=== PATIENT | male | born 1955 | race American Indian/Alaskan Native ===

== ENCOUNTER 2018-05-31 23:48 | Inpatient (IN) | payer MEDICAID ==
[2018-06-01] MEDS ORDERED: NACL 0.9% 1000 ML IV ONE (00:38)
[2018-06-01] MEDS ORDERED: TYLENOL PO ONE (00:39)
--- NOTE | 2018-06-01 01:00 | XRay Report ---
FINAL REPORT PROCEDURE: XR CHEST 1V AP TECHNIQUE: Chest radiograph anteroposterior view. CPT 01946 HISTORY: sob, fever COMPARISON: No prior studies are available for comparison. FINDINGS: Heart: Normal. Mediastinum/Vessels: Normal. Lungs/Pleural space: Normal. Bony thorax: No acute osseous abnormality. Life support devices: None. IMPRESSION: No acute cardiopulmonary abnormality.
[2018-06-01] MEDS ORDERED: PEPCID IV ONE (01:17)
[2018-06-01] MEDS ORDERED: ATROVENT IH ONE (01:17)
[2018-06-01] MEDS ORDERED: TESSALON PERLES PO ONE (01:17)
[2018-06-01] MEDS ORDERED: PROVENTIL IH ONE ×2 (01:17→03:43)
[2018-06-01] MEDS ORDERED: SOLU-Medrol IV ONE (01:17)
[2018-06-01] MEDS ORDERED: TORADOL IV ONE (01:17)
[2018-06-01] MEDS ORDERED: ZITHROMAX 500 MG in NACL 0.9% 250ML 250 ML IV ONE (01:37)
[2018-06-01] MEDS ORDERED: MAGNESIUM SULFATE 2GM/50ML 2 GM/50 ML BAG IV ONE (01:47)
[2018-06-01 01:51] LABS: Basophils % (Auto) 0.1 % (0.0-1.8); Eosinophils % (Auto) 0.4 % (0.0-4.3); Hematocrit 42.3 % (35.5-45.6); Hemoglobin 14.4 gm/dl (11.8-15.2); Lymphocytes # (Auto) 0.3 K/mm3 (1.2-5.4); Lymphocytes % (Auto) 4.9 % (13.4-35.0); Mean Corpuscular HGB Conc 34 % (32-34); Mean Corpuscular Volume 95 fl (84-94); Monocytes # (Auto) 0.5 K/mm3 (0.0-0.8); Monocytes % (Auto) 8.7 % (0.0-7.3); Platelet Count 178 K/mm3 (140-440); Red Blood Count 4.47 M/mm3 (3.65-5.03); Red Cell Distribution Width 13.7 % (13.2-15.2)
[2018-06-01] MEDS: ROCEPHIN/NS 1 GM/50 ML 1 GM/50 ML BAG IV ONE (02:00)
[2018-06-01 02:01] LABS: INR 0.94 (0.87-1.13)
[2018-06-01 02:03] LABS: Alanine Aminotransferase 16 units/L (7-56); Albumin 3.7 g/dL (3.9-5); BUN/Creatinine Ratio 14; Blood Urea Nitrogen 15 mg/dL (9-20); Calcium 8.4 mg/dL (8.4-10.2); Hemolysis Index 10
--- NOTE | 2018-06-01 04:13 | Emergency Department Report ---
ED Shortness of Breath HPI - General Chief Complaint: Dyspnea/Respdistress Stated Complaint: DIFFICULTY BREATHING Time Seen by Provider: 06/01/18 00:38 Source: patient Mode of arrival: Ambulatory Limitations: No Limitations - History of Present Illness Initial Comments: 62-year-old male with a past medical history of COPD (no home oxygen), CVA, HIV (CD4 186 1 month ago), and hypertension presents to the hospital with complaints of fever, cough, shortness of breath 1 day. Patient has been wheezing and frequent dry cough. Complains of subjective fevers and posttussive vomiting. No complaints of chest pain secondary to coughing that is mild to moderate in intensity. Patient did receive his flu and pneumonia shot. Patient using his inhaler without relief it does not have a nebulizer machine. His primary care doctors are affiliated with [facility] on [address] [place]. Patient is compliant with his antiretrovirals medications. - Related Data Allergies Allergy/AdvReac Type Severity Reaction Status Date / Time efavirenz [From Sustiva] Allergy Rash Verified 06/01/18 00:18 ED Review of Systems ROS: Stated complaint: DIFFICULTY BREATHING Other details as noted in HPI Comment: All other systems reviewed and negative ED Past Medical Hx - Past Medical History Previous Medical History?: Yes Hx Hypertension: Yes Hx CVA: Yes (1995) Hx COPD: Yes Hx HIV: Yes - Surgical History Past Surgical History?: No - Social History Smoking Status: Current Every Day Smoker Substance Use Type: None ED Physical Exam - General Limitations: No Limitations - Other Other exam information: General: No limitations, patient is alert in no acute distress Head exam: Atraumatic, normocephalic Eyes exam: Normal appearance, ENT: Moist mucous membrane Neck exam: Normal inspection, full range of motion, no meningismus nontender Respiratory exam: Bilateral wheezing without accessory muscle use. Frequent dry cough Cardiovascular: Normal rate and rhythm, normal heart sounds Abdomen: Soft, nondistended, and nontender, with normal bowel sounds, no rebound, or guarding Extremity: Full range of motion normal inspection no deformity Back: Normal Inspection, full range of motion, no tenderness Neurologic: Alert, oriented x3, cranial nerves intact, no motor or sensory deficit Psychiatric: normal affect, normal mood Skin: Warm, dry, intact ED Course Vital Signs 06/01/18 06/01/18 06/01/18 00:01 00:24 00:42 Temperature 100.6 F H 100.6 F H Pulse Rate 91 H Pulse Rate [ Anterior Bilateral Throughout] Respiratory 20 Rate Respiratory Rate [Anterior Bilateral Throughout] Blood Pressure 130/74 130/74 O2 Sat by Pulse 89 94 Oximetry 06/01/18 06/01/18 06/01/18 00:45 01:00 01:25 Temperature Pulse Rate 89 89 Pulse Rate [ 90 Anterior Bilateral Throughout] Respiratory 34 H 38 H Rate Respiratory 17 Rate [Anterior Bilateral Throughout] Blood Pressure 101/53 101/53 O2 Sat by Pulse 96 92 Oximetry 06/01/18 06/01/18 06/01/18 02:08 02:30 03:46 Temperature Pulse Rate 92 H Pulse Rate [ 87 87 Anterior Bilateral Throughout] Respiratory 31 H Rate Respiratory 18 24 Rate [Anterior Bilateral Throughout] Blood Pressure 108/66 O2 Sat by Pulse 94 Oximetry ED Medical Decision Making - Lab Data Result diagrams: 06/01/18 01:23 06/01/18 01:23 Lab Results 06/01/18 06/01/18 06/01/18 Range/Units 01:23 01:23 01:23 WBC 5.2 (4.5-11.0) K/mm3 RBC 4.47 (3.65-5.03) M/mm3 Hgb 14.4 (11.8-15.2) gm/dl Hct 42.3 (35.5-45.6) % MCV 95 H (84-94) fl MCH 32 (28-32) pg MCHC 34 (32-34) % RDW 13.7 (13.2-15.2) % Plt Count 178 (140-440) K/mm3 Lymph % (Auto) 4.9 L (13.4-35.0) % [place] % (Auto) 8.7 H (0.0-7.3) % Eos % (Auto) 0.4 (0.0-4.3) % Baso % (Auto) 0.1 (0.0-1.8) % Lymph # 0.3 L (1.2-5.4) K/mm3 [place]ie # 0.5 (0.0-0.8) K/mm3 Eos # 0.0 (0.0-0.4) K/mm3 Baso # 0.0 (0.0-0.1) K/mm3 Seg Neutrophils % 85.9 H (40.0-70.0) % Seg Neutrophils # 4.5 (1.8-7.7) K/mm3 PT (12.2-14.9) Sec. INR (0.87-1.13) VBG pH (7.320-7.420) Sodium 135 L (137-145) mmol/L Potassium 4.0 (3.6-5.0) mmol/L Chloride 100.5 (98-107) mmol/L Carbon Dioxide 24 (22-30) mmol/L Anion Gap 15 mmol/L BUN 15 (9-20) mg/dL Creatinine 1.1 (0.8-1.5) mg/dL Estimated GFR > 60 ml/min BUN/Creatinine Ratio 14 % Glucose 94 (75-100) mg/dL Lactic Acid 1.50 (0.7-2.0) mmol/L Calcium 8.4 (8.4-10.2) mg/dL Total Bilirubin 0.30 (0.1-1.2) mg/dL AST 27 (5-40) units/L ALT 16 (7-56) units/L Alkaline Phosphatase 118 (35-129) units/L Troponin T (0.00-0.029) ng/mL Total Protein 6.6 (6.3-8.2) g/dL Albumin 3.7 L (3.9-5) g/dL Albumin/Globulin Ratio 1.3 % Influenza A (Rapid) (Negative) Influenza B (Rapid) (Negative) 06/01/18 06/01/18 06/01/18 Range/Units 01:23 01:23 01:23 WBC (4.5-11.0) K/mm3 RBC (3.65-5.03) M/mm3 Hgb (11.8-15.2) gm/dl Hct (35.5-45.6) % MCV (84-94) fl MCH (28-32) pg MCHC (32-34) % RDW (13.2-15.2) % Plt Count (140-440) K/mm3 Lymph % (Auto) (13.4-35.0) % [place] % (Auto) (0.0-7.3) % Eos % (Auto) (0.0-4.3) % Baso % (Auto) (0.0-1.8) % Lymph # (1.2-5.4) K/mm3 [place] # (0.0-0.8) K/mm3 Eos # (0.0-0.4) K/mm3 Baso # (0.0-0.1) K/mm3 Seg Neutrophils % (40.0-70.0) % Seg Neutrophils # (1.8-7.7) K/mm3 PT 13.0 (12.2-14.9) Sec. INR 0.94 (0.87-1.13) VBG pH 7.334 (7.320-7.420) Sodium (137-145) mmol/L Potassium (3.6-5.0) mmol/L Chloride (98-107) mmol/L Carbon Dioxide (22-30) mmol/L Anion Gap mmol/L BUN (9-20) mg/dL Creatinine (0.8-1.5) mg/dL Estimated GFR ml/min BUN/Creatinine Ratio % Glucose (75-100) mg/dL Lactic Acid (0.7-2.0) mmol/L Calcium (8.4-10.2) mg/dL Total Bilirubin (0.1-1.2) mg/dL AST (5-40) units/L ALT (7-56) units/L Alkaline Phosphatase (35-129) units/L Troponin T < 0.010 (0.00-0.029) ng/mL Total Protein (6.3-8.2) g/dL Albumin (3.9-5) g/dL Albumin/Globulin Ratio % Influenza A (Rapid) (Negative) Influenza B (Rapid) (Negative) 06/01/18 Range/Units Unknown WBC (4.5-11.0) K/mm3 RBC (3.65-5.03) M/mm3 Hgb (11.8-15.2) gm/dl Hct (35.5-45.6) % MCV (84-94) fl MCH (28-32) pg MCHC (32-34) % RDW (13.2-15.2) % Plt Count (140-440) K/mm3 Lymph % (Auto) (13.4-35.0) % [place] % (Auto) (0.0-7.3) % Eos % (Auto) (0.0-4.3) % Baso % (Auto) (0.0-1.8) % Lymph # (1.2-5.4) K/mm3 [place]ie # (0.0-0.8) K/mm3 Eos # (0.0-0.4) K/mm3 Baso # (0.0-0.1) K/mm3 Seg Neutrophils % (40.0-70.0) % Seg Neutrophils # (1.8-7.7) K/mm3 PT (12.2-14.9) Sec. INR (0.87-1.13) VBG pH (7.320-7.420) Sodium (137-145) mmol/L Potassium (3.6-5.0) mmol/L Chloride (98-107) mmol/L Carbon Dioxide (22-30) mmol/L Anion Gap mmol/L BUN (9-20) mg/dL Creatinine (0.8-1.5) mg/dL Estimated GFR ml/min BUN/Creatinine Ratio % Glucose (75-100) mg/dL Lactic Acid (0.7-2.0) mmol/L Calcium (8.4-10.2) mg/dL Total Bilirubin (0.1-1.2) mg/dL AST (5-40) units/L ALT (7-56) units/L Alkaline Phosphatase (35-129) units/L Troponin T (0.00-0.029) ng/mL Total Protein (6.3-8.2) g/dL Albumin (3.9-5) g/dL Albumin/Globulin Ratio % Influenza A (Rapid) Negative (Negative) Influenza B (Rapid) Negative (Negative) - EKG Data -: EKG Interpreted by Nh EKG shows normal: sinus rhythm, axis (qrs 59), QRS complexes (qrsd 107), ST-T waves (no stemi) Rate: normal (94) - Radiology Data Radiology results: report reviewed FINAL REPORT PROCEDURE: XR CHEST 1V AP TECHNIQUE: Chest radiograph anteroposterior view. CPT 54227 HISTORY: sob, fever COMPARISON: No prior studies are available for comparison. FINDINGS: Heart: Normal. Mediastinum/Vessels: Normal. Lungs/Pleural space: Normal. Bony thorax: No acute osseous abnormality. Life support devices: None. IMPRESSION: No acute cardiopulmonary abnormality. - Medical Decision Making Patient's symptoms improving with ED treatment including nebs, steroids, Tessalon Perles, Tylenol, and Toradol. However he is persistently hypoxic on room air with persistent wheezing. Empirically covered with Rocephin and azithromycin. Hospitalist informed for admission. - Differential Diagnosis , COPD, bronchitis, pneumonia, viral syndrome Critical Care Time: No Critical care attestation.: If time is entered above; I have spent that time in minutes in the direct care of this critically ill patient, excluding procedure time. ED Disposition Clinical Impression: COPD with acute exacerbation, Febrile illness, acute, HIV (human immunodeficiency virus infection), Hypoxia Disposition: DC-[id number] OP ADMIT IP TO THIS HOSP Is pt being admited?: Yes Condition: Stable Time of Disposition: 04:15 (Dr Briseno/hosp)
--- NOTE | 2018-06-01 06:56 | History and Physical Report ---
CHIEF COMPLAINT: Shortness of breath. HISTORY OF PRESENTING ILLNESS: The patient is a 62-year-old male with past medical history of COPD, HIV infection, last CD4 count of 186 about a month ago, hypertension, presenting to the hospital because of shortness of breath, cough and fever. There is also a history of wheezing. There is no history of chest pain. No history of nausea or vomiting. No history of dizziness. PAST MEDICAL HISTORY: Pertinent for COPD, cerebrovascular accident, hypertension, HIV infection. PAST SURGICAL HISTORY: Unremarkable. FAMILY HISTORY: Family history is noncontributory. SOCIAL HISTORY: The patient smokes cigarettes, does not drink alcohol and does not use illicit drugs. MEDICATIONS: The patient's home medications are not known at this time. ALLERGIES: THE PATIENT IS ALLERGIC TO EFAVIRENZ. REVIEW OF SYSTEMS: CONSTITUTIONAL: There is fever, but no chills, no diaphoresis. HEENT: There is no headache or sore throat. CARDIOVASCULAR SYSTEM: There is no chest pain or orthopnea. RESPIRATORY SYSTEM: There is shortness of breath, there is cough and there is wheezing. GASTROINTESTINAL SYSTEM: There is no nausea, no vomiting, no abdominal pain, diarrhea or constipation. NEUROLOGICAL SYSTEM: There is no numbness, no dizziness, no altered mental status. MUSCULOSKELETAL SYSTEM: There is no joint pain or swelling. DERMATOLOGICAL SYSTEM: There is no skin rash or itching. GENITOURINARY SYSTEM: There is no dysuria, hematuria or flank pain. Rest of system review is normal. PHYSICAL EXAMINATION: GENERAL: At the time of exam, the patient was found to be sleeping quietly on his bed, arousable, but not in acute distress. VITAL SIGNS: At the time of initial presentation show temperature of 100.6, pulse of 91, respiration 20, blood pressure 130/74, O2 sat of 89% on room air. HEENT: Show pupils to be equal, round, reactive to light and accommodating. Extraocular muscles are intact. NECK: Neck is supple with no JVD or carotid bruit. CARDIOVASCULAR SYSTEM: Show normal first and second heart sounds with no gallops or murmurs. RESPIRATORY SYSTEM: Show good air entry on both sides of the lung with no abnormal breath sounds. GASTROINTESTINAL SYSTEM: Show abdomen to be full, soft, nontender with no organomegaly or rigidity. NEUROLOGIC: Neuro exam shows no focal deficit. MUSCULOSKELETAL SYSTEM: Show no joint swelling or tenderness. DERMATOLOGICAL SYSTEM: Show no skin rash. GENITOURINARY SYSTEM: Showing no costovertebral angle tenderness. PERTINENT LABORATORY AND IMAGING STUDIES: The patient had chest x-ray done that shows no acute cardiopulmonary abnormality. The patient's CBC shows normal white count, normal hemoglobin and normal hematocrit with CBC differential showing elevated segmented neutrophil of 85.9%. Coagulation studies were unremarkable. Chemistry showed low sodium of 135 with rest of chemistry being unremarkable. Influenza tests were negative. DIAGNOSES: 1. Chronic obstructive pulmonary disease exacerbation. 2. Upper respiratory tract infection. PLAN OF ACTION: 1. The patient will be admitted to medical/surgical [facility]. 2. The patient will be on dual nebulizer q.i.d. 3. The patient will be on IV Solu-Medrol 60 mg q. 8 hours. 4. The patient will be on IV ceftriaxone 1 gram daily and IV Zithromax 500 mg daily. 5. The patient will have Infectious Disease consult with Stephanie Babin because of HIV infection. 6. The patient's diet will be low sodium diet. 7. The patient will be on p.r.n. medications like Tylenol 650 mg by mouth every 4 hours for fever and headache and Zofran 4 mg IV every 8 hours for nausea and vomiting. 8. The patient will be on Robitussin 200 mg by mouth every 4 hours for cough. 9. The patient will be on heparin 5000 units subcutaneous q. 12 hours for DVT prophylaxis. 10. The patient's home medications will be started when they are known and reconciled. JOB# [id number] OCN/NTS
[2018-06-01] MEDS: ROCEPHIN/NS 1 GM/50 ML 1 GM/50 ML BAG IV SCH (07:06)
[2018-06-01 07:17] LABS: Bilirubin,Urine NEG (Negative); Blood,Urine NEG (Negative); Color,Urine Yellow (Yellow); Mucus,Urine FEW /HPF; Protein,Urine <15 mg/dL mg/dL (Negative); Urobilinogen,Urine < 2.0 mg/dL (<2.0); WBC,Urine < 1.0 /HPF (0.0-6.0)
--- NOTE | 2018-06-01 07:44 | Progress Note ---
Assessment and Plan Assessment and plan: Patient is a 62 yo man with a history of COPD, CVA, HIV (CD4 count was 186 one month ago per patient, first visit here), hypertension and tobacco dependency who presented to [facility] ED with sob, cough, fevers, wheezing and inhaler was not helping, he may need a nebulizer machine upon discharge. Patient reports being up to date on flu and pneumonia shot per chart. His primary care doctors are affiliated with [place] as well as ID doctors on [facility]. Patient is compliant with his antiretrovirals medications. He was found to have a pulse on 89% on RA. He is not on O2 at home. * pCXR Impression: No acute cardiopulmonary abnormality -Sepsis Bronchitis in Immunocompromised patient: treat with abx, ivf and follow cultures -AE COPD: treat with nebs, iv steriods and abx -Early Acute hypoxic respiratory failure suspect COPD related: treat with O2, check CT chest -HIV: ID consulted -Tobacco dependency: school adjustment counselor on stopping, offer nicotine patch -Hypertension: low salt diet, continue to montior bp prolonged inpatient services 32 minutes History Interval history: Patient was seen and examined. Follow-up on current diagnosis sob. Overnight uneventful. Patient denies any nausea/vomiting or severe headaches. Imaging, nursing note, chart, labs and old chart reviewed. Discussed with patient. Hospitalist Physical - Physical exam Narrative exam: Gen: ill appearing, NAD, Awake, Alert, Orientated HEENT: NCAT, EOMI, PERRL, OP Clear Neck: supple,, no thyromegaly, no JVD CVS/Heart: RRR, normal S1S2, pulses present bilaterally Chest/Lungs: bilateral exp wheezing, Symmetrical chest expansion, good air entry bilaterally GI/Abdomen: soft, NTND, good bowel sounds, no guarding or rebound /Bladder: no suprapubic tenderness, no CVA or paraspinal tenderness Extermity/Skin: no c/c/e, no obvious rash MSK: FROM x 4 Neuro: CN 2-12 grossly intact, no new focal deficits Psych: calm - Constitutional Vitals: Temp Pulse Resp BP Pulse Ox 98 F 89 31 H 98/23 92 06/01/18 05:37 06/01/18 06:00 06/01/18 06:00 06/01/18 07:15 06/01/18 07:21 Results - Labs CBC & Chem 7: 06/01/18 01:23 06/01/18 01:23 Labs: Laboratory Last Values WBC 5.2 K/mm3 (4.5-11.0) 06/01/18 01:23 RBC 4.47 M/mm3 (3.65-5.03) 06/01/18 01:23 Hgb 14.4 gm/dl (11.8-15.2) 06/01/18 01:23 Hct 42.3 % (35.5-45.6) 06/01/18 01:23 MCV 95 fl (84-94) H 06/01/18 01:23 MCH 32 pg (28-32) 06/01/18 01: MCHC 34 % (32-34) 06/01/18 01:23 RDW 13.7 % (13.2-15.2) 06/01/18 01:23 Plt Count 178 K/mm3 (140-440) 06/01/18 01:23 Lymph % (Auto) 4.9 % (13.4-35.0) L 06/01/18 01:23 [place] % (Auto) 8.7 % (0.0-7.3) H 06/01/18 01:23 Eos % (Auto) 0.4 % (0.0-4.3) 06/01/18 01:23 Baso % (Auto) 0.1 % (0.0-1.8) 06/01/18 01:23 Lymph # 0.3 K/mm3 (1.2-5.4) L 06/01/18 01:23 [place] # 0.5 K/mm3 (0.0-0.8) 06/01/18 01:23 Eos # 0.0 K/mm3 (0.0-0.4) 06/01/18 01:23 Baso # 0.0 K/mm3 (0.0-0.1) 06/01/18 01:23 Seg Neutrophils % 85.9 % (40.0-70.0) H 06/01/18 01:23 Seg Neutrophils # 4.5 K/mm3 (1.8-7.7) 06/01/18 01:23 PT 13.0 Sec. (12.2-14.9) 06/01/18 01:23 INR 0.94 (0.87-1.13) 06/01/18 01:23 VBG pH 7.334 (7.320-7.420) 06/01/18 01:23 Sodium 135 mmol/L (137-145) L 06/01/18 01:23 Potassium 4.0 mmol/L (3.6-5.0) 06/01/18 01:23 Chloride 100.5 mmol/L (98-107) 06/01/18 01:23 Carbon Dioxide 24 mmol/L (22-30) 06/01/18 01:23 Anion Gap 15 mmol/L 06/01/18 01:23 BUN 15 mg/dL (9-20) 06/01/18 01:23 Creatinine 1.1 mg/dL (0.8-1.5) 06/01/18 01:23 Estimated GFR > 60 ml/min 06/01/18 01:23 BUN/Creatinine Ratio 14 % 06/01/18 01:23 Glucose 94 mg/dL (75-100) 06/01/18 01:23 Lactic Acid 1.50 mmol/L (0.7-2.0) 06/01/18 03:51 Calcium 8.4 mg/dL (8.4-10.2) 06/01/18 01:23 Total Bilirubin 0.30 mg/dL (0.1-1.2) 06/01/18 01:23 AST 27 units/L (5-40) 06/01/18 01:23 ALT 16 units/L (7-56) 06/01/18 01:23 Alkaline Phosphatase 118 units/L (35-129) 06/01/18 01:23 Troponin T < 0.010 ng/mL (0.00-0.029) 06/01/18 01:23 Total Protein 6.6 g/dL (6.3-8.2) 06/01/18 01:23 Albumin 3.7 g/dL (3.9-5) L 06/01/18 01:23 Albumin/Globulin Ratio 1.3 % 06/01/18 01:23 Urine Color Yellow (Yellow) 06/01/18 Unknown Urine Turbidity Clear (Clear) 06/01/18 Unknown Urine pH 5.0 (5.0-7.0) 06/01/18 Unknown Ur Specific [place] 1.023 (1.003-1.030) 06/01/18 Unknown Urine Protein <15 mg/dl mg/dL (Negative) 06/01/18 Unknown Urine Glucose (UA) Neg mg/dL (Negative) 06/01/18 Unknown Urine Ketones Neg mg/dL (Negative) 06/01/18 Unknown Urine Blood Neg (Negative) 06/01/18 Unknown Urine Nitrite Neg (Negative) 06/01/18 Unknown Urine Bilirubin Neg (Negative) 06/01/18 Unknown Urine Urobilinogen < 2.0 mg/dL (<2.0) 06/01/18 Unknown Ur Leukocyte Esterase Neg (Negative) 06/01/18 Unknown Urine WBC (Auto) < 1.0 /HPF (0.0-6.0) 06/01/18 Unknown Urine RBC (Auto) 3.0 /HPF (0.0-6.0) 06/01/18 Unknown Urine Mucus Few /HPF 06/01/18 Unknown Influenza A (Rapid) Negative (Negative) 06/01/18 Unknown Influenza B (Rapid) Negative (Negative) 06/01/18 Unknown
[2018-06-01] MEDS ORDERED: TYLENOL PO PRN (07:45)
[2018-06-01] MEDS: DUONEB *Not for PRN Use IH SCH ×4 (08:51→19:36)
[2018-06-01] MEDS: HEPARIN SUB-Q SCH ×2 (12:25→22:43)
[2018-06-01] MEDS: SOLU-Medrol IV SCH ×2 (12:25→17:48)
[2018-06-01] MEDS: ROBITUSSIN PO PRN (13:35)
[2018-06-01] MEDS ORDERED: ZOFRAN IV PRN (13:53)
[2018-06-01] MEDS ORDERED: MIRALAX 3350 PO PRN (13:53)
--- NOTE | 2018-06-01 15:23 | Consultation ---
History of Present Illness - Reason for Consult Consult date: 06/01/18 - History of Present Illness This patient is a 62 year old male with a past medical history of COPD, CVA, HIV, CD4 count one month ago per patient was 184, VL undetectable, Hypertension and tobacco dependency, presented to the ED on 06/01/18 with SOB, couth, fevers, whezing. Upon further evaluation, patient reported that his primary care and ID doctors are affiliated with [facility]. On admission WBC 5.2, Creatinine 1.1, Lactic Acid 1.50, Influenza negative, Temperature 100.6,, HR 91. U/A is not consistent with a UTI, Chest xray showed no consolidation. Patient states that he has been coughing for the past 4 days. He lives in the home with 15 people and states everyone is sick and coughing. He admits to tobacco dependency but denies drug or alcohol abuse. He was diagnoised with HIV in the and has been compliant with his HIV medications for the last year and half.. Review of Systems: General: + fever, +chills, no nightsweats, unintentional weight change, or change in appetite Cutaneous: no rash, pruritus Head: no headaches or injury Eyes: no changes in vision, eye pain, double vision Ears: no ear pain, ear discharge, ringing or hearing loss Nose: no nose bleeding, stuffiness Mouth & throat: no bleeding gums, no horseness, no dental problems, or swollen glands Neck: no pain, node enlargement/lumps, tyroid enlargement or tenderness Respiratory: + cough, wheezing, maddie sputum, hemoptysis, pleuritic chest pain Cardiovascular: no chest pain, leg edema, cyanosis, MACEDO, orthopnea Musculoskeletal: no decreased joint motion, + left leg tenderness, no swelling Gastrointestinal: + no nausea, no vomiting, hematemesis, diarrhea, constipation, Genitourinary/Reproductive: + frequent urination, no dysuria, hematuria, incontinence Neurogical: no seizures, no headaches, no weakness, no paresthesias, no loss of speech or vision Psychiatric: stable mood; no excessive anxiety, sadness or moodiness Medications and Allergies Allergies Allergy/AdvReac Type Severity Reaction Status Date / Time efavirenz [From Sustiva] Allergy Rash Verified 06/01/18 00:18 Active Meds: Active Medications Acetaminophen (Tylenol) 650 mg PO Q6H PRN PRN Reason: Non Cardiac Pain or Temp>100.5 Albuterol/Ipratropium (Duoneb *Not For Prn Use*) 1 ampul IH QIDRT [facility] Last Admin: 06/01/18 12:55 Dose: 1 ampul Documented by: Benzonatate (Tessalon Perles) 100 mg PO Q8HR [facility] Guaifenesin (Robitussin) 200 mg PO Q4H PRN PRN Reason: Cough Last Admin: 06/01/18 13:35 Dose: 200 mg Documented by: Heparin Sodium (Porcine) (Heparin) 5,000 unit SUB-Q Q12HR [facility] Last Admin: 06/01/18 12:25 Dose: 5,000 unit Documented by: Azithromycin 500 mg/ Sodium (Chloride) 250 mls @ 250 mls/hr IV Q24HR [facility] Ceftriaxone Sodium (Rocephin/Ns 1 Gm/50 Ml) 1 gm in 50 mls @ 100 mls/hr IV Q24H [facility]; Protocol Last Admin: 06/01/18 07:06 Dose: 100 mls/hr Documented by: Sodium Chloride (Nacl 0.9% 1000 Ml) 1,000 mls @ 100 mls/hr IV DIRECT AYDEN Methylprednisolone Sodium Succinate (Solu-Medrol) 60 mg IV Q8H [facility] Last Admin: 06/01/18 12:25 Dose: 60 mg Documented by: Ondansetron HCl (Zofran) 4 mg IV Q4H PRN PRN Reason: Nausea And Vomiting Pantoprazole Sodium (Protonix) 40 mg PO QDAY [facility] Polyethylene Glycol (Miralax 3350) 17 gm PO QDAY PRN PRN Reason: Constipation Physical Examination - Physical Exam Narrative exam: Constitutional: Alert, cooperative. mild distress Head, Ears, Nose: Normocephalic, atraumatic. External ears, nose normal Eyes: Conjunctivae/corneas clear. No icterus. No ptosis. Neck: Supple, no meningeal signs Oral: dentition poor no thrush Cardiovascular: S1, S2 normal. Respiratory: bilateral wheezing GI: Soft, non-tender; bowel sounds normal. No peritoneal signs Musculoskeletal: No pedal edema, no cyanosis., + left leg tenderness Skin: No rash or abscess. Hem/Lymphatic: No palpable cervical or supraclavicular nodes. No lymphangitis Psych: Mood ok. Affect normal Neurological: Awake, alert, oriented. - Constitutional Vitals: Vital Signs Temp Pulse Resp BP Pulse Ox 99.5 F 97 H 24 135/56 91 06/01/18 09:34 06/01/18 09:34 06/01/18 09:34 06/01/18 09:34 06/01/18 09:34 Temperature -Last 24 Hours Temperature 99.5 F Temperature 98 F Temperature 100.6 F Temperature 100.6 F Results - Labs CBC & Chem 7: 06/01/18 01:23 06/01/18 01:23 Labs: Abnormal lab results 06/01/18 06/01/18 Range/Units 01:23 01:23 MCV 95 H (84-94) fl Lymph % (Auto) 4.9 L (13.4-35.0) % [place] % (Auto) 8.7 H (0.0-7.3) % Lymph # 0.3 L (1.2-5.4) K/mm3 Seg Neutrophils % 85.9 H (40.0-70.0) % Sodium 135 L (137-145) mmol/L Albumin 3.7 L (3.9-5) g/dL - Imaging and Cardiology Chest x-ray: report reviewed, image reviewed (shows no obvious pneumonia) Assessment and Plan Cultures 06/01/18 Blood: In progress A/P: 62 year old male with a past medical history of COPD, CVA, HIV, admitted with: 1. SOB, Fever and Cough: CXR without pneumonia or consolidation. Patient with bilateral wheezing suggestive of acute COPD exacerbation. Reports CD4 count one month ago 184, VL undetectable, he is not on any PCP prophylaxis, but with an undetectable viral load and CD4 close to the 200 range, risk of PCP is low, l No leukocytois, chest xray show no consolidation, blood cultures were drawn and are in progress. Continue Azithromycin and Ceftriaxone. 2. HIV: diagnosed with HIV in the . Currently goes to [facility] on [address], reports being compliant with medication regimen. Will resume his home medications. 3. Tobacco dependency: recommend cessation. Plan: -f/u blood cultures -continue Azithromycin and Ceftriaxone for now -resume HIV meds: some of his meds are non formulary. Hence, Dr. Remy will order alternatives to ensure a complete HIV regimen. - recommend smoking cessation. - ordered Tamiflu - Flu PCR ordered, if negative, can d/c Tamiflu d/w Dr. Jonel Rivera, [facility] M: [phone] O:[phone]
--- NOTE | 2018-06-01 16:30 | Progress Note ---
Assessment and Plan Assessment and plan: Patient is a 62 yo man with a history of COPD, CVA, HIV (CD4 count was 186 one month ago per patient, first visit here), hypertension and tobacco dependency who presented to [facility] ED with sob, cough, fevers, wheezing and inhaler was not helping, he may need a nebulizer machine upon discharge. Patient reports being up to date on flu and pneumonia shot per chart. His primary care doctors are affiliated with [facility] as well as ID doctors on [facility]. Patient is compliant with his antiretrovirals medications. He was found to have a pulse on 89% on RA. He is not on O2 at home. * pCXR Impression: No acute cardiopulmonary abnormality -Sepsis Bronchitis in Immunocompromised patient: treat with abx, ivf and follow cultures -AE COPD: treat with nebs, iv steriods and abx -Early Acute hypoxic respiratory failure suspect COPD related: treat with O2, check CT chest -HIV: ID consulted -Tobacco dependency: classification counselor on stopping, offer nicotine patch -Hypertension: low salt diet, continue to montior bp History Interval history: Patient was seen and examined. Follow-up on current diagnosis sob. Overnight uneventful. Patient denies any nausea/vomiting or severe headaches. Imaging, nursing note, chart, labs and old chart reviewed. Discussed with patient. Hospitalist Physical - Physical exam Narrative exam: Gen: ill appearing, NAD, Awake, Alert, Orientated HEENT: NCAT, EOMI, PERRL, OP Clear Neck: supple,, no thyromegaly, no JVD CVS/Heart: RRR, normal S1S2, pulses present bilaterally Chest/Lungs: bilateral exp wheezing, Symmetrical chest expansion, good air entry bilaterally GI/Abdomen: soft, NTND, good bowel sounds, no guarding or rebound /Bladder: no suprapubic tenderness, no CVA or paraspinal tenderness Extermity/Skin: no c/c/e, no obvious rash MSK: FROM x 4 Neuro: CN 2-12 grossly intact, no new focal deficits Psych: calm - Constitutional Vitals: Temp Pulse Resp BP Pulse Ox 99.5 F 97 H 24 135/56 91 06/01/18 09:34 06/01/18 09:34 06/01/18 09:34 06/01/18 09:34 06/01/18 09:34 Results - Labs CBC & Chem 7: 06/01/18 01:23 06/01/18 01:23 Labs: Laboratory Last Values WBC 5.2 K/mm3 (4.5-11.0) 06/01/18 01:23 RBC 4.47 M/mm3 (3.65-5.03) 06/01/18 01:23 Hgb 14.4 gm/dl (11.8-15.2) 06/01/18 01:23 Hct 42.3 % (35.5-45.6) 06/01/18 01:23 MCV 95 fl (84-94) H 06/01/18 01:23 MCH 32 pg (28-32) 06/01/18 01:23 MCHC 34 % (32-34) 06/01/18 01:23 RDW 13.7 % (13.2-15.2) 06/01/18 01:23 Plt Count 178 K/mm3 (140-440) 06/01/18 01:23 Lymph % (Auto) 4.9 % (13.4-35.0) L 06/01/18 01:23 [place] % (Auto) 8.7 % (0.0-7.3) H 06/01/18 01:23 Eos % (Auto) 0.4 % (0.0-4.3) 06/01/18 01:23 Baso % (Auto) 0.1 % (0.0-1.8) 06/01/18 01:23 Lymph # 0.3 K/mm3 (1.2-5.4) L 06/01/18 01:23 [place] # 0.5 K/mm3 (0.0-0.8) 06/01/18 01:23 Eos # 0.0 K/mm3 (0.0-0.4) 06/01/18 01:23 Baso # 0.0 K/mm3 (0.0-0.1) 06/01/18 01:23 Seg Neutrophils % 85.9 % (40.0-70.0) H 06/01/18 01:23 Seg Neutrophils # 4.5 K/mm3 (1.8-7.7) 06/01/18 01:23 PT 13.0 Sec. (12.2-14.9) 06/01/18 01:23 INR 0.94 (0.87-1.13) 06/01/18 01:23 VBG pH 7.334 (7.320-7.420) 06/01/18 01:23 Sodium 135 mmol/L (137-145) L 06/01/18 01:23 Potassium 4.0 mmol/L (3.6-5.0) 06/01/18 01:23 Chloride 100.5 mmol/L (98-107) 06/01/18 01:23 Carbon Dioxide 24 mmol/L (22-30) 06/01/18 01:23 Anion Gap 15 mmol/L 06/01/18 01:23 BUN 15 mg/dL (9-20) 06/01/18 01:23 Creatinine 1.1 mg/dL (0.8-1.5) 06/01/18 01:23 Estimated GFR > 60 ml/min 06/01/18 01:23 BUN/Creatinine Ratio 14 % 06/01/18 01:23 Glucose 94 mg/dL (75-100) 06/01/18 01:23 Lactic Acid 1.50 mmol/L (0.7-2.0) 06/01/18 03:51 Calcium 8.4 mg/dL (8.4-10.2) 06/01/18 01:23 Total Bilirubin 0.30 mg/dL (0.1-1.2) 06/01/18 01:23 AST 27 units/L (5-40) 06/01/18 01:23 ALT 16 units/L (7-56) 06/01/18 01:23 Alkaline Phosphatase 118 units/L (35-129) 06/01/18 01:23 Troponin T < 0.010 ng/mL (0.00-0.029) 06/01/18 01:23 Total Protein 6.6 g/dL (6.3-8.2) 06/01/18 01:23 Albumin 3.7 g/dL (3.9-5) L 06/01/18 01:23 Albumin/Globulin Ratio 1.3 % 06/01/18 01:23 Urine Color Yellow (Yellow) 06/01/18 Unknown Urine Turbidity Clear (Clear) 06/01/18 Unknown Urine pH 5.0 (5.0-7.0) 06/01/18 Unknown Ur Specific [place] 1.023 (1.003-1.030) 06/01/18 Unknown Urine Protein <15 mg/dl mg/dL (Negative) 06/01/18 Unknown Urine Glucose (UA) Neg mg/dL (Negative) 06/01/18 Unknown Urine Ketones Neg mg/dL (Negative) 06/01/18 Unknown Urine Blood Neg (Negative) 06/01/18 Unknown Urine Nitrite Neg (Negative) 06/01/18 Unknown Urine Bilirubin Neg (Negative) 06/01/18 Unknown Urine Urobilinogen < 2.0 mg/dL (<2.0) 06/01/18 Unknown Ur Leukocyte Esterase Neg (Negative) 06/01/18 Unknown Urine WBC (Auto) < 1.0 /HPF (0.0-6.0) 06/01/18 Unknown Urine RBC (Auto) 3.0 /HPF (0.0-6.0) 06/01/18 Unknown Urine Mucus Few /HPF 06/01/18 Unknown Influenza A (Rapid) Negative (Negative) 06/01/18 Unknown Influenza B (Rapid) Negative (Negative) 06/01/18 Unknown
[2018-06-01] MEDS: ZITHROMAX 500 MG in NACL 0.9% 250ML 250 ML IV SCH (17:29)
--- NOTE | 2018-06-01 17:30 | Cat Scan Report ---
FINAL REPORT EXAM: CT CHEST WO/W CON HISTORY: hypoxic, pneumonia, hiv The the TECHNIQUE: CT examination of the chest before and after IV contrast PRIORS: One-view chest 06/01/2018 FINDINGS: Normal cardiac size without pericardial effusion. Intact normal caliber thoracic aorta without aneury sm or dissection. Normal-appearing esophagus. No hilar mass or mediastinal adenopathy. No filling def ect in the visible pulmonary arteries. Nonspecific prominence of lymph nodes in left axilla. These may be reactive or neoplastic. Lamellated calcification in the gallbladder lumen suggestive of gallstone. Smoothly marginated hypodense lateral segment left hepatic lobe lesions are nonspecific and statistic ally most likely reflect cysts and/or hemangiomas. It appears to contain tubular structures. Differen tial includes infection or neoplasm. This appears to be a cluster lesion. The maximum dimension is ap proximately 7.1 cm. The it does not significantly enhance with IV contrast. Degenerative change in the regional skeleton. No evidence of acute fracture. No pneumothorax or pleural effusion. No focal pulmonary Scattered pulmonary emphysema with upper lobe predominance. No definite lung mass or pulmonary nodule . IMPRESSION: Scattered pulmonary emphysema with upper lobe predominance No definite evidence of acute cardiopulmonary disease Nonspecific prominence of left axillary lymph nodes may be reactive or neoplastic Gallbladder calcifications suggestive of gallstone Nonspecific tubular cystic lesion in lateral segment of left hepatic lobe may reflect clustered cysts and/or hemangiomas. Differential includes dilated distal biliary radicals, inflammation, infection a nd/or neoplasm
[2018-06-01] MEDS: TESSALON PERLES PO SCH ×2 (17:50→22:48)
[2018-06-01] MEDS: PROTONIX PO SCH (17:50)
[2018-06-01] MEDS: ISENTRESS PO SCH (22:43)
[2018-06-01] MEDS: TAMIFLU PO SCH (22:45)
[2018-06-01] MEDS: PREZISTA PO SCH (22:48)
[2018-06-01] MEDS: NORVIR PO SCH (22:58)
[2018-06-02] MEDS: SOLU-Medrol IV SCH ×4 (01:51→21:29)
[2018-06-02] MEDS: NACL 0.9% 1000 ML 1,000 ML IV SCH ×2 (01:52→17:09)
[2018-06-02 06:39] LABS: Hematocrit 41.7 % (35.5-45.6); Hemoglobin 14.2 gm/dl (11.8-15.2); Mean Corpuscular HGB Conc 34 % (32-34); Mean Corpuscular Volume 95 fl (84-94); Platelet Count 176 K/mm3 (140-440); Red Blood Count 4.37 M/mm3 (3.65-5.03); Red Cell Distribution Width 13.7 % (13.2-15.2)
[2018-06-02 07:00] LABS: BUN/Creatinine Ratio 21; Blood Urea Nitrogen 17 mg/dL (9-20); Calcium 8.6 mg/dL (8.4-10.2); Hemolysis Index 22
[2018-06-02] MEDS: TESSALON PERLES PO SCH ×3 (07:44→21:19)
[2018-06-02] MEDS: DUONEB *Not for PRN Use IH SCH ×3 (08:58→21:53)
[2018-06-02] MEDS: ROBITUSSIN PO PRN ×2 (09:14→13:59)
[2018-06-02] MEDS: ISENTRESS PO SCH ×2 (09:30→21:22)
[2018-06-02] MEDS: TAMIFLU PO SCH ×2 (09:33→21:19)
[2018-06-02] MEDS: PREZISTA PO SCH ×2 (09:33→21:19)
[2018-06-02] MEDS: NORVIR PO SCH ×2 (09:33→21:19)
[2018-06-02] MEDS: VIREAD PO SCH ×2 (09:34)
[2018-06-02] MEDS: HEPARIN SUB-Q SCH ×2 (09:46→21:19)
[2018-06-02] MEDS: PROTONIX PO SCH (09:46)
[2018-06-02] MEDS: ROCEPHIN/NS 1 GM/50 ML 1 GM/50 ML BAG IV ONE (09:55)
[2018-06-02] MEDS: ROCEPHIN/NS 1 GM/50 ML 1 GM/50 ML BAG IV SCH ×5 (09:56→10:22)
[2018-06-02] MEDS: ZITHROMAX 500 MG in NACL 0.9% 250ML 250 ML IV SCH (10:28)
--- NOTE | 2018-06-02 14:19 | Progress Note ---
Assessment and Plan Assessment and plan: Patient is a 62 yo man with a history of COPD, CVA, HIV (CD4 count was 186 one month ago per patient, first visit here), hypertension and tobacco dependency who presented to [facility] ED with sob, cough, fevers, wheezing and inhaler was not helping, he may need a nebulizer machine upon discharge. Patient reports being up to date on flu and pneumonia shot per chart. His primary care doctors are affiliated with [facility] as well as ID doctors on [facility]. Patient is compliant with his antiretrovirals medications. He was found to have a pulse on 89% on RA. He is not on O2 at home. * pCXR Impression: No acute cardiopulmonary abnormality * CT chest wo/w contrast IMPRESSION: Scattered pulmonary emphysema with upper lobe predominance No definite evidence of acute cardiopulmonary disease Nonspecific prominence of left axillary lymph nodes may be reactive or neoplastic Gallbladder calcifications suggestive of gallstone Nonspecific tubular cystic lesion in lateral segment of left hepatic lobe may reflect clustered cysts and/or hemangiomas. Differential includes dilated distal biliary radicals, inflammation, infection and/or neoplasm -Sepsis Bronchitis in Immunocompromised patient: treat with abx, ivf and follow cultures -AE COPD: treat with nebs, iv steriods and abx -Early Acute hypoxic respiratory failure suspect COPD related: treat with O2, check CT chest -HIV: ID consulted -Tobacco dependency: weight loss counselor on stopping, offer nicotine patch -Hypertension: low salt diet, continue to montior bp History Interval history: Patient was seen and examined. Follow-up on current diagnosis sob. Overnight uneventful. Patient denies any nausea/vomiting or severe headaches. Imaging, nursing note, chart, labs and old chart reviewed. Discussed with patient. Hospitalist Physical - Physical exam Narrative exam: Gen: ill appearing, NAD, Awake, Alert, Orientated HEENT: NCAT, EOMI, PERRL, OP Clear Neck: supple,, no thyromegaly, no JVD CVS/Heart: RRR, normal S1S2, pulses present bilaterally Chest/Lungs: bilateral exp wheezing, Symmetrical chest expansion, good air entry bilaterally GI/Abdomen: soft, NTND, good bowel sounds, no guarding or rebound /Bladder: no suprapubic tenderness, no CVA or paraspinal tenderness Extermity/Skin: no c/c/e, no obvious rash MSK: FROM x 4 Neuro: CN 2-12 grossly intact, no new focal deficits Psych: calm - Constitutional Vitals: Temp Pulse Resp BP Pulse Ox 99.8 F H 97 H 20 119/41 96 06/02/18 12:05 06/02/18 12:05 06/02/18 12:05 06/02/18 12:05 06/02/18 12:05 Results - Labs CBC & Chem 7: 06/02/18 06:20 06/02/18 06:20 Labs: Laboratory Last Values WBC 12.5 K/mm3 (4.5-11.0) H 06/02/18 06:20 RBC 4.37 M/mm3 (3.65-5.03) 06/02/18 06:20 Hgb 14.2 gm/dl (11.8-15.2) 06/02/18 06:20 Hct 41.7 % (35.5-45.6) 06/02/18 06:20 MCV 95 fl (84-94) H 06/02/18 06:20 MCH 33 pg (28-32) H 06/02/18 06:20 MCHC 34 % (32-34) 06/02/18 06:20 RDW 13.7 % (13.2-15.2) 06/02/18 06:20 Plt Count 176 K/mm3 (140-440) 06/02/18 06:20 Lymph % (Auto) 4.9 % (13.4-35.0) L 06/01/18 01:23 [place] % (Auto) 8.7 % (0.0-7.3) H 06/01/18 01:23 Eos % (Auto) 0.4 % (0.0-4.3) 06/01/18 01:23 Baso % (Auto) 0.1 % (0.0-1.8) 06/01/18 01:23 Lymph # 0.3 K/mm3 (1.2-5.4) L 06/01/18 01:23 [place] # 0.5 K/mm3 (0.0-0.8) 06/01/18 01:23 Eos # 0.0 K/mm3 (0.0-0.4) 06/01/18 01:23 Baso # 0.0 K/mm3 (0.0-0.1) 06/01/18 01:23 Seg Neutrophils % 85.9 % (40.0-70.0) H 06/01/18 01:23 Seg Neutrophils # 4.5 K/mm3 (1.8-7.7) 06/01/18 01:23 PT 13.0 Sec. (12.2-14.9) 06/01/18 01:23 INR 0.94 (0.87-1.13) 06/01/18 01:23 VBG pH 7.334 (7.320-7.420) 06/01/18 01:23 Sodium 138 mmol/L (137-145) 06/02/18 06:20 Potassium 3.9 mmol/L (3.6-5.0) 06/02/18 06:20 Chloride 102.0 mmol/L (98-107) 06/02/18 06:20 Carbon Dioxide 23 mmol/L (22-30) 06/02/18 06:20 Anion Gap 17 mmol/L 06/02/18 06:20 BUN 17 mg/dL (9-20) 06/02/18 06:20 Creatinine 0.8 mg/dL (0.8-1.5) 06/02/18 06:20 Estimated GFR > 60 ml/min 06/02/18 06:20 BUN/Creatinine Ratio 21 % 06/02/18 06:20 Glucose 155 mg/dL (75-100) H 06/02/18 06:20 Lactic Acid 1.50 mmol/L (0.7-2.0) 06/01/18 03:51 Calcium 8.6 mg/dL (8.4-10.2) 06/02/18 06:20 Total Bilirubin 0.30 mg/dL (0.1-1.2) 06/01/18 01:23 AST 27 units/L (5-40) 06/01/18 01:23 ALT 16 units/L (7-56) 06/01/18 01:23 Alkaline Phosphatase 118 units/L (35-129) 06/01/18 01:23 Troponin T < 0.010 ng/mL (0.00-0.029) 06/01/18 01:23 Total Protein 6.6 g/dL (6.3-8.2) 06/01/18 01:23 Albumin 3.7 g/dL (3.9-5) L 06/01/18 01:23 Albumin/Globulin Ratio 1.3 % 06/01/18 01:23 Urine Color Yellow (Yellow) 06/01/18 Unknown Urine Turbidity Clear (Clear) 06/01/18 Unknown Urine pH 5.0 (5.0-7.0) 06/01/18 Unknown Ur Specific [place] 1.023 (1.003-1.030) 06/01/18 Unknown Urine Protein <15 mg/dl mg/dL (Negative) 06/01/18 Unknown Urine Glucose (UA) Neg mg/dL (Negative) 06/01/18 Unknown Urine Ketones Neg mg/dL (Negative) 06/01/18 Unknown Urine Blood Neg (Negative) 06/01/18 Unknown Urine Nitrite Neg (Negative) 06/01/18 Unknown Urine Bilirubin Neg (Negative) 06/01/18 Unknown Urine Urobilinogen < 2.0 mg/dL (<2.0) 06/01/18 Unknown Ur Leukocyte Esterase Neg (Negative) 06/01/18 Unknown Urine WBC (Auto) < 1.0 /HPF (0.0-6.0) 06/01/18 Unknown Urine RBC (Auto) 3.0 /HPF (0.0-6.0) 06/01/18 Unknown Urine Mucus Few /HPF 06/01/18 Unknown Influenza A (Rapid) Negative (Negative) 06/01/18 Unknown Influenza B (Rapid) Negative (Negative) 06/01/18 Unknown
[2018-06-02] MEDS: MUCINEX ER PO SCH ×2 (15:03→21:19)
[2018-06-03] MEDS: NACL 0.9% 1000 ML 1,000 ML IV SCH ×2 (03:14→15:40)
[2018-06-03] MEDS: DUONEB *Not for PRN Use IH SCH ×4 (04:43→19:35)
[2018-06-03] MEDS: SOLU-Medrol IV SCH ×3 (05:29→21:43)
[2018-06-03] MEDS: TESSALON PERLES PO SCH ×3 (05:30→21:43)
[2018-06-03 06:07] LABS: Hematocrit 41.6 % (35.5-45.6); Hemoglobin 14.2 gm/dl (11.8-15.2); Mean Corpuscular HGB Conc 34 % (32-34); Mean Corpuscular Volume 95 fl (84-94); Platelet Count 173 K/mm3 (140-440); Red Blood Count 4.38 M/mm3 (3.65-5.03); Red Cell Distribution Width 13.8 % (13.2-15.2)
--- NOTE | 2018-06-03 08:43 | Progress Note ---
Assessment and Plan Assessment and plan: Patient is a 62 yo man with a history of COPD, CVA, HIV (CD4 count was 186 one month ago per patient, first visit here), hypertension and tobacco dependency who presented to [facility] ED with sob, cough, fevers, wheezing and inhaler was not helping, he may need a nebulizer machine upon discharge. Patient reports being up to date on flu and pneumonia shot per chart. His primary care doctors are affiliated with [facility] as well as ID doctors on [facility]. Patient is compliant with his antiretrovirals medications. He was found to have a pulse on 89% on RA. He is not on O2 at home. * pCXR Impression: No acute cardiopulmonary abnormality * CT chest wo/w contrast IMPRESSION: Scattered pulmonary emphysema with upper lobe predominance No definite evidence of acute cardiopulmonary disease Nonspecific prominence of left axillary lymph nodes may be reactive or neoplastic Gallbladder calcifications suggestive of gallstone Nonspecific tubular cystic lesion in lateral segment of left hepatic lobe may reflect clustered cysts and/or hemangiomas. Differential includes dilated distal biliary radicals, inflammation, infection and/or neoplasm -Sepsis Bronchitis in Immunocompromised patient: treat with abx, ivf and follow cultures -AE COPD: treat with nebs, iv steriods and abx -Early Acute hypoxic respiratory failure suspect COPD related: treat with O2, check CT chest -HIV: ID consulted -Tobacco dependency: director of counseling on stopping, offer nicotine patch -Hypertension: low salt diet, continue to montior bp History Interval history: Patient was seen and examined. Follow-up on current diagnosis sob. Overnight uneventful. Patient denies any nausea/vomiting or severe headaches. Imaging, nursing note, chart, labs and old chart reviewed. Discussed with patient. Hospitalist Physical - Physical exam Narrative exam: Gen: ill appearing, NAD, Awake, Alert, Orientated HEENT: NCAT, EOMI, PERRL, OP Clear Neck: supple,, no thyromegaly, no JVD CVS/Heart: RRR, normal S1S2, pulses present bilaterally Chest/Lungs: bilateral exp wheezing, Symmetrical chest expansion, good air entry bilaterally GI/Abdomen: soft, NTND, good bowel sounds, no guarding or rebound /Bladder: no suprapubic tenderness, no CVA or paraspinal tenderness Extermity/Skin: no c/c/e, no obvious rash MSK: FROM x 4 Neuro: CN 2-12 grossly intact, no new focal deficits Psych: calm - Constitutional Vitals: Temp Pulse Resp BP Pulse Ox 98.5 F 70 18 127/55 96 06/03/18 04:20 06/03/18 04:20 06/03/18 04:20 06/03/18 04:20 06/03/18 04:20 Results - Labs CBC & Chem 7: 06/03/18 04:00 06/02/18 06:20 Labs: Laboratory Last Values WBC 14.8 K/mm3 (4.5-11.0) H 06/03/18 04:00 RBC 4.38 M/mm3 (3.65-5.03) 06/03/18 04:00 Hgb 14.2 gm/dl (11.8-15.2) 06/03/18 04:00 Hct 41.6 % (35.5-45.6) 06/03/18 04:00 MCV 95 fl (84-94) H 06/03/18 04:00 MCH 32 pg (28-32) 06/03/18 04:00 MCHC 34 % (32-34) 06/03/18 04:00 RDW 13.8 % (13.2-15.2) 06/03/18 04:00 Plt Count 173 K/mm3 (140-440) 06/03/18 04:00 Lymph % (Auto) 4.9 % (13.4-35.0) L 06/01/18 01:23 [place] % (Auto) 8.7 % (0.0-7.3) H 06/01/18 01:23 Eos % (Auto) 0.4 % (0.0-4.3) 06/01/18 01:23 Baso % (Auto) 0.1 % (0.0-1.8) 06/01/18 01:23 Lymph # 0.3 K/mm3 (1.2-5.4) L 06/01/18 01:23 [place] # 0.5 K/mm3 (0.0-0.8) 06/01/18 01:23 Eos # 0.0 K/mm3 (0.0-0.4) 06/01/18 01:23 Baso # 0.0 K/mm3 (0.0-0.1) 06/01/18 01:23 Seg Neutrophils % 85.9 % (40.0-70.0) H 06/01/18 01:23 Seg Neutrophils # 4.5 K/mm3 (1.8-7.7) 06/01/18 01:23 PT 13.0 Sec. (12.2-14.9) 06/01/18 01:23 INR 0.94 (0.87-1.13) 06/01/18 01:23 VBG pH 7.334 (7.320-7.420) 06/01/18 01:23 Sodium 138 mmol/L (137-145) 06/02/18 06:20 Potassium 3.9 mmol/L (3.6-5.0) 06/02/18 06:20 Chloride 102.0 mmol/L (98-107) 06/02/18 06:20 Carbon Dioxide 23 mmol/L (22-30) 06/02/18 06:20 Anion Gap 17 mmol/L 06/02/18 06:20 BUN 17 mg/dL (9-20) 06/02/18 06:20 Creatinine 0.8 mg/dL (0.8-1.5) 06/02/18 06:20 Estimated GFR > 60 ml/min 06/02/18 06:20 BUN/Creatinine Ratio 21 % 06/02/18 06:20 Glucose 155 mg/dL (75-100) H 06/02/18 06:20 Lactic Acid 1.50 mmol/L (0.7-2.0) 06/01/18 03:51 Calcium 8.6 mg/dL (8.4-10.2) 06/02/18 06:20 Total Bilirubin 0.30 mg/dL (0.1-1.2) 06/01/18 01:23 AST 27 units/L (5-40) 06/01/18 01:23 ALT 16 units/L (7-56) 06/01/18 01:23 Alkaline Phosphatase 118 units/L (35-129) 06/01/18 01:23 Troponin T < 0.010 ng/mL (0.00-0.029) 06/01/18 01:23 Total Protein 6.6 g/dL (6.3-8.2) 06/01/18 01:23 Albumin 3.7 g/dL (3.9-5) L 06/01/18 01:23 Albumin/Globulin Ratio 1.3 % 06/01/18 01:23 Urine Color Yellow (Yellow) 06/01/18 Unknown Urine Turbidity Clear (Clear) 06/01/18 Unknown Urine pH 5.0 (5.0-7.0) 06/01/18 Unknown Ur Specific [place] 1.023 (1.003-1.030) 06/01/18 Unknown Urine Protein <15 mg/dl mg/dL (Negative) 06/01/18 Unknown Urine Glucose (UA) Neg mg/dL (Negative) 06/01/18 Unknown Urine Ketones Neg mg/dL (Negative) 06/01/18 Unknown Urine Blood Neg (Negative) 06/01/18 Unknown Urine Nitrite Neg (Negative) 06/01/18 Unknown Urine Bilirubin Neg (Negative) 06/01/18 Unknown Urine Urobilinogen < 2.0 mg/dL (<2.0) 06/01/18 Unknown Ur Leukocyte Esterase Neg (Negative) 06/01/18 Unknown Urine WBC (Auto) < 1.0 /HPF (0.0-6.0) 06/01/18 Unknown Urine RBC (Auto) 3.0 /HPF (0.0-6.0) 06/01/18 Unknown Urine Mucus Few /HPF 06/01/18 Unknown Influenza A (Rapid) Negative (Negative) 06/01/18 Unknown Influenza B (Rapid) Negative (Negative) 06/01/18 Unknown
[2018-06-03] MEDS: ROCEPHIN/NS 1 GM/50 ML 1 GM/50 ML BAG IV SCH (10:20)
[2018-06-03] MEDS: VIREAD PO SCH (10:21)
[2018-06-03] MEDS: HEPARIN SUB-Q SCH ×2 (10:21→21:53)
[2018-06-03] MEDS: TAMIFLU PO SCH ×2 (10:22→21:43)
[2018-06-03] MEDS: NORVIR PO SCH ×2 (10:22→21:43)
[2018-06-03] MEDS: ISENTRESS PO SCH ×2 (10:22→21:43)
[2018-06-03] MEDS: PREZISTA PO SCH ×2 (10:22→22:39)
[2018-06-03] MEDS: PROTONIX PO SCH (10:23)
[2018-06-03] MEDS: MUCINEX ER PO SCH ×2 (10:23→21:43)
[2018-06-03] MEDS: ZITHROMAX 500 MG in NACL 0.9% 250ML 250 ML IV SCH (12:01)
--- NOTE | 2018-06-03 14:03 | Progress Note ---
Assessment and Plan Cultures 06/01/18 Blood: no growth 06/01/2018 MRSA nare pending A/P: 62 year old male with a past medical history of COPD, CVA, HIV, admitted with: 1. SOB, Fever and Cough: fever resolved. Likely due to COPD exacerbation +/- influenza; responding to ceftriaxone, azithromycin and tamiflu - CXR without pneumonia or consolidation. P - blood cultures negative 2. HIV: diagnosed with HIV in the . Currently goes to [facility] on [address], reports being compliant with medication regimen. Reports CD4 count one month ago 184, VL undetectable, 3. Tobacco dependency: recommend cessation. Plan: -influenza antigen / PCR not done -continue Azithromycin, Ceftriaxone and tamiflu for now -continue ART -recommend smoking cessation. Stephanie Snowden MD [facility] C: [phone] O: [phone] F: [phone] Subjective Date of service: 06/03/18 Principal diagnosis: cough Interval history: Patient reports feeling better, still cough and mild SOB. Fever resolved for 48h. Review of Systems: General: no fever, no chills, no nightsweats, unintentional weight change, or change in appetite Cutaneous: no rash, pruritus Mouth & throat: no bleeding gums, no horseness, no dental problems, or swollen glands Respiratory: + cough, wheezing, maddie sputum, hemoptysis, pleuritic chest pain Objective - Exam Narrative Exam: Constitutional: Alert, cooperative, No acute distress Head, Ears, Nose: Normocephalic, atraumatic. External ears, nose normal Eyes: Conjunctivae/corneas clear. No icterus. No ptosis. Neck: Supple, no meningeal signs Oral: dentition good, no thrush Cardiovascular:RRR Respiratory: +wheezing bilaterally GI: Soft, non-tender; bowel sounds normal Musculoskeletal: No pedal edema, no cyanosis. Skin: No rash or abscess. Hem/Lymphatic: No palpable cervical or supraclavicular nodes. No lymphangitis Psych: Mood ok. Neurological: Awake, alert, oriented moving all extr - Constitutional Vitals: Vital Signs Temp Pulse Resp BP Pulse Ox 98.0 F 71 20 125/68 93 06/03/18 11:23 06/03/18 11:23 06/03/18 11:23 06/03/18 11:23 06/03/18 11:23 Temperature -Last 24 Hours Temperature 98.0 F Temperature 98.5 F Temperature 98.5 F Temperature 98.5 F Temperature 98.6 F - Labs CBC & Chem 7: 06/03/18 04:00 06/02/18 06:20 Labs: Abnormal lab results 06/03/18 Range/Units 04:00 WBC 14.8 H (4.5-11.0) K/mm3 MCV 95 H (84-94) fl
[2018-06-04] MEDS: NACL 0.9% 1000 ML 1,000 ML IV SCH ×2 (01:16→15:21)
[2018-06-04] MEDS: DUONEB *Not for PRN Use IH SCH ×4 (01:52→19:52)
[2018-06-04] MEDS ORDERED: PROVENTIL IH PRN (01:53)
[2018-06-04] MEDS: TESSALON PERLES PO SCH ×3 (05:53→22:48)
[2018-06-04] MEDS: SOLU-Medrol IV SCH ×3 (05:53→22:44)
[2018-06-04 06:00] LABS: Hematocrit 43.4 % (35.5-45.6); Hemoglobin 14.6 gm/dl (11.8-15.2); Mean Corpuscular HGB Conc 34 % (32-34); Mean Corpuscular Volume 95 fl (84-94); Platelet Count 173 K/mm3 (140-440); Red Blood Count 4.55 M/mm3 (3.65-5.03); Red Cell Distribution Width 13.7 % (13.2-15.2)
[2018-06-04 06:58] LABS: BUN/Creatinine Ratio 16; Blood Urea Nitrogen 13 mg/dL (9-20); Calcium 8.3 mg/dL (8.4-10.2); Hemolysis Index 14
[2018-06-04] MEDS: ROCEPHIN/NS 1 GM/50 ML 1 GM/50 ML BAG IV SCH (09:30)
--- NOTE | 2018-06-04 09:37 | Progress Note ---
Assessment and Plan Cultures 06/01/18 Blood: no growth 06/01/2018 MRSA nare pending A/P: 62 year old male with a past medical history of COPD, CVA, HIV, admitted with: 1. SOB, Fever and Cough: fever resolved. Likely due to COPD exacerbation +/- influenza; responding to ceftriaxone, azithromycin and tamiflu - CXR without pneumonia or consolidation. - blood cultures negative -Influenza- Positive 2. HIV: diagnosed with HIV in the . Currently goes to [facility] on [address], reports being compliant with medication regimen. Reports CD4 count one month ago 184, VL undetectable, 3. Tobacco dependency: recommend cessation. Plan: -discontinue Azithromycin, Ceftriaxone -continue tamiflu for, D4 -may be ok to discharge tomorrow from ID standpoint -continue ART [facility] M: [phone] O:[phone] Subjective Date of service: 06/04/18 Principal diagnosis: cough Interval history: Patient seen and examined. Denied pain, fevers or rashes. Stated that he continues to have SOB, although improved since admission. Objective - Exam Narrative Exam: Constitutional: Alert, cooperative. mild distress Head, Ears, Nose: Normocephalic, atraumatic. External ears, nose normal Eyes: Conjunctivae/corneas clear. No icterus. No ptosis. Neck: Supple, no meningeal signs Oral: dentition poor no thrush Cardiovascular: S1, S2 normal. Respiratory: bilateral wheezing GI: Soft, non-tender; bowel sounds normal. No peritoneal signs Musculoskeletal: No pedal edema, no cyanosis., + left leg tenderness Skin: No rash or abscess. Hem/Lymphatic: No palpable cervical or supraclavicular nodes. No lymphangitis Psych: Mood ok. Affect normal Neurological: Awake, alert, oriented. - Constitutional Vitals: Vital Signs Temp Pulse Resp BP Pulse Ox 98.4 F 70 16 133/88 95 06/04/18 04:57 06/04/18 08:24 06/04/18 08:24 06/04/18 04:57 06/04/18 08:23 Temperature -Last 24 Hours Temperature 98.4 F Temperature 98.0 F Temperature 98.4 F Temperature 98.0 F - Labs CBC & Chem 7: 06/04/18 05:40 06/04/18 05:40 Labs: Abnormal lab results 06/01/18 06/04/18 06/04/18 Range/Units Unknown 05:40 05:40 WBC 11.5 H (4.5-11.0) K/mm3 MCV 95 H (84-94) fl Potassium 3.3 L (3.6-5.0) mmol/L Glucose 133 H (75-100) mg/dL Calcium 8.3 L (8.4-10.2) mg/dL Influenza B (RT-PCR) Positive A (Negative)
[2018-06-04] MEDS: VIREAD PO SCH (12:15)
[2018-06-04] MEDS: ZITHROMAX 500 MG in NACL 0.9% 250ML 250 ML IV SCH (12:15)
[2018-06-04] MEDS: NORVIR PO SCH ×2 (12:16→22:48)
[2018-06-04] MEDS: MUCINEX ER PO SCH ×2 (12:16→22:43)
[2018-06-04] MEDS: TAMIFLU PO SCH ×2 (12:16→22:45)
[2018-06-04] MEDS: HEPARIN SUB-Q SCH ×2 (12:16→22:44)
[2018-06-04] MEDS: PROTONIX PO SCH (12:17)
[2018-06-04] MEDS: PREZISTA PO SCH ×2 (12:45→22:48)
[2018-06-04] MEDS ORDERED: K-DUR PO ONE (13:25)
--- NOTE | 2018-06-04 13:29 | Progress Note ---
Assessment and Plan Assessment and plan: Patient is a 62 yo man with a history of COPD, CVA, HIV (CD4 count was 186 one month ago per patient, first visit here), hypertension and tobacco dependency who presented to [facility] ED with sob, cough, fevers, wheezing and inhaler was not helping, he may need a nebulizer machine upon discharge. Patient reports being up to date on flu and pneumonia shot per chart. His primary care doctors are affiliated with [facility] as well as ID doctors on [facility]. Patient is compliant with his antiretrovirals medications. He was found to have a pulse on 89% on RA. He is not on O2 at home. * pCXR Impression: No acute cardiopulmonary abnormality * CT chest wo/w contrast IMPRESSION: Scattered pulmonary emphysema with upper lobe predominance No definite evidence of acute cardiopulmonary disease Nonspecific prominence of left axillary lymph nodes may be reactive or neoplastic Gallbladder calcifications suggestive of gallstone Nonspecific tubular cystic lesion in lateral segment of left hepatic lobe may reflect clustered cysts and/or hemangiomas. Differential includes dilated distal biliary radicals, inflammation, infection and/or neoplasm -Sepsis Bronchitis in Immunocompromised patient: treat with abx, ivf and follow cultures -AE COPD: treat with nebs, iv steriods and abx -Early Acute hypoxic respiratory failure suspect COPD related: treat with O2, check CT chest -HIV: ID consulted -Tobacco dependency: credit counselor on stopping, offer nicotine patch -Hypertension: low salt diet, continue to montior bp Day 4 of tamiflu, most likely discharge tomorrow, after finishing tamiflu. Try to wean off o2 today History Interval history: Patient was seen and examined. Follow-up on current diagnosis sob. Overnight uneventful. Patient denies any nausea/vomiting or severe headaches. Imaging, nursing note, chart, labs and old chart reviewed. Discussed with patient. Hospitalist Physical - Physical exam Narrative exam: Gen: ill appearing, NAD, Awake, Alert, Orientated HEENT: NCAT, EOMI, PERRL, OP Clear Neck: supple,, no thyromegaly, no JVD CVS/Heart: RRR, normal S1S2, pulses present bilaterally Chest/Lungs: bilateral exp wheezing, Symmetrical chest expansion, good air entry bilaterally GI/Abdomen: soft, NTND, good bowel sounds, no guarding or rebound /Bladder: no suprapubic tenderness, no CVA or paraspinal tenderness Extermity/Skin: no c/c/e, no obvious rash MSK: FROM x 4 Neuro: CN 2-12 grossly intact, no new focal deficits Psych: calm - Constitutional Vitals: Temp Pulse Resp BP Pulse Ox 98.4 F 70 16 133/88 95 06/04/18 04:57 06/04/18 08:24 06/04/18 08:24 06/04/18 04:57 06/04/18 08:23 Results - Labs CBC & Chem 7: 06/04/18 05:40 06/04/18 05:40 Labs: Laboratory Last Values WBC 11.5 K/mm3 (4.5-11.0) H 06/04/18 05:40 RBC 4.55 M/mm3 (3.65-5.03) 06/04/18 05:40 Hgb 14.6 gm/dl (11.8-15.2) 06/04/18 05:40 Hct 43.4 % (35.5-45.6) 06/04/18 05:40 MCV 95 fl (84-94) H 06/04/18 05:40 MCH 32 pg (28-32) 06/04/18 05:40 MCHC 34 % (32-34) 06/04/18 05:40 RDW 13.7 % (13.2-15.2) 06/04/18 05:40 Plt Count 173 K/mm3 (140-440) 06/04/18 05:40 Lymph % (Auto) 4.9 % (13.4-35.0) L 06/01/18 01:23 Terrell % (Auto) 8.7 % (0.0-7.3) H 06/01/18 01:23 Eos % (Auto) 0.4 % (0.0-4.3) 06/01/18 01:23 Baso % (Auto) 0.1 % (0.0-1.8) 06/01/18 01:23 Lymph # 0.3 K/mm3 (1.2-5.4) L 06/01/18 01:23 Terrell # 0.5 K/mm3 (0.0-0.8) 06/01/18 01:23 Eos # 0.0 K/mm3 (0.0-0.4) 06/01/18 01:23 Baso # 0.0 K/mm3 (0.0-0.1) 06/01/18 01:23 Seg Neutrophils % 85.9 % (40.0-70.0) H 06/01/18 01:23 Seg Neutrophils # 4.5 K/mm3 (1.8-7.7) 06/01/18 01:23 PT 13.0 Sec. (12.2-14.9) 06/01/18 01:23 INR 0.94 (0.87-1.13) 06/01/18 01:23 VBG pH 7.334 (7.320-7.420) 06/01/18 01:23 Sodium 140 mmol/L (137-145) 06/04/18 05:40 Potassium 3.3 mmol/L (3.6-5.0) L 06/04/18 05:40 Chloride 102.3 mmol/L (98-107) 06/04/18 05:40 Carbon Dioxide 24 mmol/L (22-30) 06/04/18 05:40 Anion Gap 17 mmol/L 06/04/18 05:40 BUN 13 mg/dL (9-20) 06/04/18 05:40 Creatinine 0.8 mg/dL (0.8-1.5) 06/04/18 05:40 Estimated GFR > 60 ml/min 06/04/18 05:40 BUN/Creatinine Ratio 16 % 06/04/18 05:40 Glucose 133 mg/dL (75-100) H 06/04/18 05:40 Lactic Acid 1.50 mmol/L (0.7-2.0) 06/01/18 03:51 Calcium 8.3 mg/dL (8.4-10.2) L 06/04/18 05:40 Total Bilirubin 0.30 mg/dL (0.1-1.2) 06/01/18 01:23 AST 27 units/L (5-40) 06/01/18 01:23 ALT 16 units/L (7-56) 06/01/18 01:23 Alkaline Phosphatase 118 units/L (35-129) 06/01/18 01:23 Troponin T < 0.010 ng/mL (0.00-0.029) 06/01/18 01:23 Total Protein 6.6 g/dL (6.3-8.2) 06/01/18 01:23 Albumin 3.7 g/dL (3.9-5) L 06/01/18 01:23 Albumin/Globulin Ratio 1.3 % 06/01/18 01:23 Urine Color Yellow (Yellow) 06/01/18 Unknown Urine Turbidity Clear (Clear) 06/01/18 Unknown Urine pH 5.0 (5.0-7.0) 06/01/18 Unknown Ur Specific [place] 1.023 (1.003-1.030) 06/01/18 Unknown Urine Protein <15 mg/dl mg/dL (Negative) 06/01/18 Unknown Urine Glucose (UA) Neg mg/dL (Negative) 06/01/18 Unknown Urine Ketones Neg mg/dL (Negative) 06/01/18 Unknown Urine Blood Neg (Negative) 06/01/18 Unknown Urine Nitrite Neg (Negative) 06/01/18 Unknown Urine Bilirubin Neg (Negative) 06/01/18 Unknown Urine Urobilinogen < 2.0 mg/dL (<2.0) 06/01/18 Unknown Ur Leukocyte Esterase Neg (Negative) 06/01/18 Unknown Urine WBC (Auto) < 1.0 /HPF (0.0-6.0) 06/01/18 Unknown Urine RBC (Auto) 3.0 /HPF (0.0-6.0) 06/01/18 Unknown Urine Mucus Few /HPF 06/01/18 Unknown Influenza A (Rapid) Negative (Negative) 06/01/18 Unknown Influenza A (RT-PCR) Positive (Negative) A 06/01/18 Unknown Influenza B (Rapid) Negative (Negative) 06/01/18 Unknown Influenza B (RT-PCR) Negative (Negative) 06/01/18 Unknown
[2018-06-04] MEDS: ISENTRESS PO SCH (13:46)
[2018-06-04] MEDS: TIVICAY PO SCH (22:43)
[2018-06-05] MEDS: DUONEB *Not for PRN Use IH SCH ×2 (02:33→08:51)
[2018-06-05] MEDS: TESSALON PERLES PO SCH ×2 (05:42→13:13)
[2018-06-05] MEDS: SOLU-Medrol IV SCH ×2 (05:42→13:15)
[2018-06-05] MEDS: NACL 0.9% 1000 ML 1,000 ML IV SCH (05:43)
[2018-06-05 06:18] LABS: Hematocrit 44.3 % (35.5-45.6); Mean Corpuscular HGB Conc 34 % (32-34); Mean Corpuscular Volume 95 fl (84-94); Platelet Count 187 K/mm3 (140-440); Red Blood Count 4.67 M/mm3 (3.65-5.03); Red Cell Distribution Width 13.9 % (13.2-15.2)
[2018-06-05 06:38] LABS: BUN/Creatinine Ratio 20; Blood Urea Nitrogen 16 mg/dL (9-20); Calcium 8.3 mg/dL (8.4-10.2); Hemolysis Index 11
--- NOTE | 2018-06-05 09:03 | Progress Note ---
Assessment and Plan Cultures 06/01/18 Blood: no growth 06/01/2018 MRSA nare - negative A/P: 62 year old male with a past medical history of COPD, CVA, HIV, admitted with: 1. SOB, Fever and Cough: fever resolved. Likely due to COPD exacerbation +/- influenza; responding to ceftriaxone, azithromycin and tamiflu - CXR without pneumonia or consolidation. - blood cultures negative -Influenza- Positive 2. HIV: diagnosed with HIV in the . Currently goes to [facility] on [address], reports being compliant with medication regimen. Reports CD4 count one month ago 184, VL undetectable, 3. Tobacco dependency: recommend cessation. Plan: -continue tamiflu D5 -continue ART Ok to discharge from ID standpoint [facility] M: [phone] O:[phone] Subjective Date of service: 06/05/18 Principal diagnosis: cough Interval history: Patient seen and examined. Denied pain, fevers or rashes. Stated that he continues to have SOB, although improved since admission. Discussion regarding discharge medication and importance of continuing ART therapy, verbalized understanding. Objective - Exam Narrative Exam: Constitutional: Alert, cooperative. mild distress Head, Ears, Nose: Normocephalic, atraumatic. External ears, nose normal Eyes: Conjunctivae/corneas clear. No icterus. No ptosis. Neck: Supple, no meningeal signs Oral: dentition poor no thrush Cardiovascular: S1, S2 normal. Respiratory: +wheezing right base GI: Soft, non-tender; bowel sounds normal. No peritoneal signs Musculoskeletal: No pedal edema, no cyanosis., + left leg tenderness Skin: No rash or abscess. Hem/Lymphatic: No palpable cervical or supraclavicular nodes. No lymphangitis Psych: Mood ok. Affect normal Neurological: Awake, alert, oriented. - Constitutional Vitals: Vital Signs Temp Pulse Resp BP Pulse Ox 98.0 F 83 20 117/79 95 06/04/18 22:41 06/05/18 08:00 06/05/18 08:00 06/04/18 22:41 06/05/18 08:56 Temperature -Last 24 Hours Temperature 98.0 F Temperature 98.3 F Temperature 99.2 F - Labs CBC & Chem 7: 06/05/18 04:58 06/05/18 04:58 Labs: Abnormal lab results 06/01/18 06/05/18 06/05/18 Range/Units Unknown 04:58 04:58 MCV 95 H (84-94) fl Potassium 3.2 L (3.6-5.0) mmol/L Glucose 164 H (75-100) mg/dL Calcium 8.3 L (8.4-10.2) mg/dL Influenza A (RT-PCR) Positive A (Negative)
[2018-06-05] MEDS: HEPARIN SUB-Q SCH (09:33)
[2018-06-05] MEDS: MUCINEX ER PO SCH (09:33)
[2018-06-05] MEDS: TAMIFLU PO SCH (09:33)
[2018-06-05] MEDS: VIREAD PO SCH (09:33)
[2018-06-05] MEDS: PROTONIX PO SCH (09:33)
[2018-06-05] MEDS: NORVIR PO SCH (09:34)
[2018-06-05] MEDS: PREZISTA PO SCH (09:35)
--- NOTE | 2018-06-05 11:10 | Progress Note ---
Assessment and Plan Assessment and plan: Patient is a 62 yo man with a history of COPD, CVA, HIV (CD4 count was 186 one month ago per patient, first visit here), hypertension and tobacco dependency who presented to [facility] ED with sob, cough, fevers, wheezing and inhaler was not helping, he may need a nebulizer machine upon discharge. Patient reports being up to date on flu and pneumonia shot per chart. His primary care doctors are affiliated with [facility] as well as ID doctors on [facility]. Patient is compliant with his antiretrovirals medications. He was found to have a pulse on 89% on RA. He is not on O2 at home. * pCXR Impression: No acute cardiopulmonary abnormality * CT chest wo/w contrast IMPRESSION: Scattered pulmonary emphysema with upper lobe predominance No definite evidence of acute cardiopulmonary disease Nonspecific prominence of left axillary lymph nodes may be reactive or neoplastic Gallbladder calcifications suggestive of gallstone Nonspecific tubular cystic lesion in lateral segment of left hepatic lobe may reflect clustered cysts and/or hemangiomas. Differential includes dilated distal biliary radicals, inflammation, infection and/or neoplasm -Sepsis Bronchitis in Immunocompromised patient: treat with abx, ivf and follow cultures -AE COPD: treat with nebs, iv steriods and abx -Early Acute hypoxic respiratory failure suspect COPD related: treat with O2, check CT chest -HIV: ID consulted -Tobacco dependency: correctional substance abuse counselor on stopping, offer nicotine patch -Hypertension: low salt diet, continue to montior bp Day 5 of tamiflu, most likely discharge after finishing tamiflu. Try to wean off o2 today History Interval history: Patient was seen and examined. Follow-up on current diagnosis sob. Overnight uneventful. Patient denies any nausea/vomiting or severe headaches. Imaging, nursing note, chart, labs and old chart reviewed. Discussed with patient. Hospitalist Physical - Physical exam Narrative exam: Gen: ill appearing, NAD, Awake, Alert, Orientated HEENT: NCAT, EOMI, PERRL, OP Clear Neck: supple,, no thyromegaly, no JVD CVS/Heart: RRR, normal S1S2, pulses present bilaterally Chest/Lungs: bilateral exp wheezing, Symmetrical chest expansion, good air entry bilaterally GI/Abdomen: soft, NTND, good bowel sounds, no guarding or rebound /Bladder: no suprapubic tenderness, no CVA or paraspinal tenderness Extermity/Skin: no c/c/e, no obvious rash MSK: FROM x 4 Neuro: CN 2-12 grossly intact, no new focal deficits Psych: calm - Constitutional Vitals: Temp Pulse Resp BP Pulse Ox 98.0 F 83 20 117/79 95 06/04/18 22:41 06/05/18 08:00 06/05/18 08:00 06/04/18 22:41 06/05/18 08:56 Results - Labs CBC & Chem 7: 06/05/18 04:58 06/05/18 04:58 Labs: Laboratory Last Values WBC 8.7 K/mm3 (4.5-11.0) 06/05/18 04:58 RBC 4.67 M/mm3 (3.65-5.03) 06/05/18 04:58 Hgb 15.0 gm/dl (11.8-15.2) 06/05/18 04:58 Hct 44.3 % (35.5-45.6) 06/05/18 04:58 MCV 95 fl (84-94) H 06/05/18 04:58 MCH 32 pg (28-32) 06/05/18 04:58 MCHC 34 % (32-34) 06/05/18 04:58 RDW 13.9 % (13.2-15.2) 06/05/18 04:58 Plt Count 187 K/mm3 (140-440) 06/05/18 04:58 Lymph % (Auto) 4.9 % (13.4-35.0) L 06/01/18 01:23 Person % (Auto) 8.7 % (0.0-7.3) H 06/01/18 01:23 Eos % (Auto) 0.4 % (0.0-4.3) 06/01/18 01:23 Baso % (Auto) 0.1 % (0.0-1.8) 06/01/18 01:23 Lymph # 0.3 K/mm3 (1.2-5.4) L 06/01/18 01:23 Person # 0.5 K/mm3 (0.0-0.8) 06/01/18 01:23 Eos # 0.0 K/mm3 (0.0-0.4) 06/01/18 01:23 Baso # 0.0 K/mm3 (0.0-0.1) 06/01/18 01:23 Seg Neutrophils % 85.9 % (40.0-70.0) H 06/01/18 01:23 Seg Neutrophils # 4.5 K/mm3 (1.8-7.7) 06/01/18 01:23 PT 13.0 Sec. (12.2-14.9) 06/01/18 01:23 INR 0.94 (0.87-1.13) 06/01/18 01:23 VBG pH 7.334 (7.320-7.420) 06/01/18 01:23 Sodium 142 mmol/L (137-145) 06/05/18 04:58 Potassium 3.2 mmol/L (3.6-5.0) L 06/05/18 04:58 Chloride 101.6 mmol/L (98-107) 06/05/18 04:58 Carbon Dioxide 25 mmol/L (22-30) 06/05/18 04:58 Anion Gap 19 mmol/L 06/05/18 04:58 BUN 16 mg/dL (9-20) 06/05/18 04:58 Creatinine 0.8 mg/dL (0.8-1.5) 06/05/18 04:58 Estimated GFR > 60 ml/min 06/05/18 04:58 BUN/Creatinine Ratio 20 % 06/05/18 04:58 Glucose 164 mg/dL (75-100) H 06/05/18 04:58 Lactic Acid 1.50 mmol/L (0.7-2.0) 06/01/18 03:51 Calcium 8.3 mg/dL (8.4-10.2) L 06/05/18 04:58 Total Bilirubin 0.30 mg/dL (0.1-1.2) 06/01/18 01:23 AST 27 units/L (5-40) 06/01/18 01:23 ALT 16 units/L (7-56) 06/01/18 01:23 Alkaline Phosphatase 118 units/L (35-129) 06/01/18 01:23 Troponin T < 0.010 ng/mL (0.00-0.029) 06/01/18 01:23 Total Protein 6.6 g/dL (6.3-8.2) 06/01/18 01:23 Albumin 3.7 g/dL (3.9-5) L 06/01/18 01:23 Albumin/Globulin Ratio 1.3 % 06/01/18 01:23 Urine Color Yellow (Yellow) 06/01/18 Unknown Urine Turbidity Clear (Clear) 06/01/18 Unknown Urine pH 5.0 (5.0-7.0) 06/01/18 Unknown Ur Specific [place] 1.023 (1.003-1.030) 06/01/18 Unknown Urine Protein <15 mg/dl mg/dL (Negative) 06/01/18 Unknown Urine Glucose (UA) Neg mg/dL (Negative) 06/01/18 Unknown Urine Ketones Neg mg/dL (Negative) 06/01/18 Unknown Urine Blood Neg (Negative) 06/01/18 Unknown Urine Nitrite Neg (Negative) 06/01/18 Unknown Urine Bilirubin Neg (Negative) 06/01/18 Unknown Urine Urobilinogen < 2.0 mg/dL (<2.0) 06/01/18 Unknown Ur Leukocyte Esterase Neg (Negative) 06/01/18 Unknown Urine WBC (Auto) < 1.0 /HPF (0.0-6.0) 06/01/18 Unknown Urine RBC (Auto) 3.0 /HPF (0.0-6.0) 06/01/18 Unknown Urine Mucus Few /HPF 06/01/18 Unknown Influenza A (Rapid) Negative (Negative) 06/01/18 Unknown Influenza A (RT-PCR) Positive (Negative) A 06/01/18 Unknown Influenza B (Rapid) Negative (Negative) 06/01/18 Unknown Influenza B (RT-PCR) Negative (Negative) 06/01/18 Unknown
--- NOTE | 2018-06-05 11:20 | Discharge Summary ---
Providers - Providers Date of Admission: 06/01/18 06:12 Date of discharge: 06/05/18 Attending physician: BRIAN NAZARIO 06/01/18 06:18 Consult to Physician [CONS] Routine Comment: Consulting Provider: SHAYLA HEWITT Physician Instructions: Reason For Exam: HIV INFECTION Primary care physician: MAINOR ANDERSON Hospitalization Condition: Stable Hospital course: Patient is a 62 yo man with a history of COPD, CVA, HIV (CD4 count was 186 one month ago per patient, first visit here), hypertension and tobacco dependency who presented to [facility] ED with sob, cough, fevers, wheezing and inhaler was not helping, he may need a nebulizer machine upon discharge. Patient reports being up to date on flu and pneumonia shot per chart. His primary care doctors are affiliated with [facility] as well as ID doctors on [facility]. Patient is compliant with his antiretrovirals medications. He was found to have a pulse on 89% on RA. He is not on O2 at home. * pCXR Impression: No acute cardiopulmonary abnormality * CT chest wo/w contrast IMPRESSION: Scattered pulmonary emphysema with upper lobe predominance No definite evidence of acute cardiopulmonary disease Nonspecific prominence of left axillary lymph nodes may be reactive or neoplastic Gallbladder calcifications suggestive of gallstone Nonspecific tubular cystic lesion in lateral segment of left hepatic lobe may reflect clustered cysts and/or hemangiomas. Differential includes dilated distal biliary radicals, inflammation, infection and/or neoplasm -Sepsis Bronchitis in Immunocompromised patient: treat with abx, ivf and follow cultures -AE COPD: treat with nebs, iv steriods and abx -Early Acute hypoxic respiratory failure suspect COPD related: treat with O2, check CT chest -HIV: ID consulted -Tobacco dependency: counseling center director on stopping, offer nicotine patch -Hypertension: low salt diet, continue to montior bp Day 5 of tamiflu, but last dose tomorrow morning Disposition: DC- TO HOME OR SELFCARE Time spent for discharge: 35 minutes Core Measure Documentation - Palliative Care Palliative Care/ Comfort Measures: Not Applicable - Core Measures Any of the following diagnoses?: none - VTE Discharge Requirements Deep Vein Thrombosis/Pulmonary Embolism Present on Admission: No Has pt received <5 days of overlap therapy or INR<2.0: No Anticoagulant overlap therapy prescribed at discharge: No Contraindication No Overlap Therapy order at DC: Not Indicated Exam - Physical Exam Narrative exam: Gen: ill appearing, NAD, Awake, Alert, Orientated HEENT: NCAT, EOMI, PERRL, OP Clear Neck: supple,, no thyromegaly, no JVD CVS/Heart: RRR, normal S1S2, pulses present bilaterally Chest/Lungs: bilateral exp wheezing, Symmetrical chest expansion, good air entry bilaterally GI/Abdomen: soft, NTND, good bowel sounds, no guarding or rebound /Bladder: no suprapubic tenderness, no CVA or paraspinal tenderness Extermity/Skin: no c/c/e, no obvious rash MSK: FROM x 4 Neuro: CN 2-12 grossly intact, no new focal deficits Psych: calm - Constitutional Vitals: Temp Pulse Resp BP Pulse Ox 98.0 F 83 20 117/79 95 06/04/18 22:41 06/05/18 08:00 06/05/18 08:00 06/04/18 22:41 06/05/18 08:56 Plan Activity: other (no strenous activity until cleared by PCP) Diet: regular Durable Medical Equipment Needed Upon Discharge: Nebulizer Follow up with: MAINOR ANDERSON DO [Primary Care Provider] - 3-5 Days IDRene [Other] - 7 Days Prescriptions: Benzonatate [Tessalon Perles] 100 mg PO Q8HR PRN #30 capsule PRN Reason: Cough Ipratropium/Albuterol Sulfate [DUONEB *Not for PRN Use*] 1 ampul IH Q4HRT PRN #30 ampul.neb PRN Reason: Shortness Of Breath methylPREDNISolone [Medrol Dose Fox] 1 dose PO DAILY #1 pack Oseltamivir [Tamiflu] 75 mg PO BID #2 cap Other Discharge Orders: Nebulizer (Amb) Location: None Selected
[2018-06-05] MEDS ORDERED: K-DUR PO ONE (12:00)
[2018-06-05 12:16] VITALS: BP 132/82
[2018-06-05] MEDS: TIVICAY PO SCH (12:29)
== END 2018-06-05 16:00 | disposition home or self-care (01) | DRG 871 ==
LOC: ED 23:48 → 3A 06-01 06:12
PROVIDERS: ADMIT Internal Medicine; ATTEND Internal Medicine
DX: A41.9 Sepsis, unspecified organism (principal); J96.01 Acute respiratory failure with hypoxia; J44.1 Chronic obstructive pulmonary disease with (acute) exacerbation; I10 Essential (primary) hypertension; D89.9 Disorder involving the immune mechanism, unspecified; J44.0 Chronic obstructive pulmonary disease with (acute) lower respiratory infection; F17.210 Nicotine dependence, cigarettes, uncomplicated; J40 Bronchitis, not specified as acute or chronic; Z86.73 Personal history of transient ischemic attack (TIA), and cerebral infarction without residual deficits; Z71.6 Tobacco abuse counseling
CPT/HCPCS: 36415; 71045; 71270; 80048; 80053; 81001; 82140; 82805; 84484; 85025; 85027; 85610; 87040; 87116; 87400; 93005; 93010; 94640; 94644; 94760; 96365; 96367; 96375; 99406; G0378; J0456; J0696; J1644; J1885; J2920; J2930; J3475; J7030; J7050; Q9967

== ENCOUNTER 2020-09-30 18:36 | Emergency (ER) | payer MEDICAID ==
[2020-09-30 23:03] VITALS: BP 144/83
--- NOTE | 2020-10-01 01:03 | XRay Report ---
LEFT TIBIA/FIBULA 2 VIEWS INDICATION / CLINICAL INFORMATION: Left leg pain. COMPARISON: None available. FINDINGS: BONES and JOINT(S): No acute fracture or subluxation. Severe tricompartmental osteoarthritis is noted along the knee. SOFT TISSUES: No significant abnormality. ADDITIONAL FINDINGS: None. IMPRESSION: 1. No acute findings. 2. Severe osteoarthritis of the left knee. Signer Name: Jadiel Mariscal MD Signed: 10/01/2020 12:59 AM Workstation Name: [id number]
--- NOTE | 2020-10-01 02:11 | Emergency Department Report ---
ED General Adult HPI - General Chief complaint: Extremity Problem,Nontraumatic Stated complaint: PAIN IN LEFT LEG PUI?: No Time Seen by Provider: 09/30/20 23:30 Source: patient Mode of arrival: Ambulatory Limitations: No Limitations - History of Present Illness Initial comments: 62-year-old -[place] male with a history of chronic left lower extremity wound weakness due to a previous stroke several years ago presents emerged department complaining of having pain to his left lower extremity after trying to get off the bus and losing his balance and having a near fall. He reports no direct contact with the knee no popping no swelling no abrasions or lacerations. Reports no fever, chills, sweats reports no low back pain or hip pain -: Gradual Radiation: non-radiation Consistency: constant Improves with: none Worsens with: none Associated Symptoms: denies: chest pain, cough, diaphoresis, headaches, loss of appetite, malaise, nausea/vomiting, rash, syncope, weakness Treatments Prior to Arrival: none - Related Data Previous Rx's Medication Instructions Recorded Last Taken Type Acetaminophen [Acetaminophen TAB] 650 mg PO Q6H PRN #8 tablet 06/05/18 Unknown Rx Benzonatate [Tessalon Perles] 100 mg PO Q8HR PRN #30 capsule 06/05/18 Unknown Rx Ipratropium/Albuterol Sulfate 1 ampul IH Q4HRT PRN #30 ampul.neb 06/05/18 Unknown Rx [DUONEB *Not for PRN Use*] Oseltamivir [Tamiflu] 75 mg PO BID #2 cap 06/05/18 Unknown Rx methylPREDNISolone [Medrol Dose 1 dose PO DAILY #1 pack 06/05/18 Unknown Rx Fox] Allergies Allergy/AdvReac Type Severity Reaction Status Date / Time efavirenz [From Sustiva] Allergy Rash Verified 06/01/18 00:18 ED Review of Systems ROS: Stated complaint: PAIN IN LEFT LEG Other details as noted in HPI Comment: All other systems reviewed and negative ED Past Medical Hx - Past Medical History Previous Medical History?: Yes Hx Hypertension: Yes Hx CVA: Yes (1995) Hx Congestive Heart Failure: No Hx Diabetes: No Hx Arthritis: Yes (lt knee) Hx Asthma: Yes Hx COPD: Yes Hx HIV: Yes - Social History Smoking Status: Current Every Day Smoker - Medications Home Medications: Home Medications Medication Instructions Recorded Confirmed Last Taken Type Acetaminophen [Acetaminophen TAB] 650 mg PO Q6H PRN #8 tablet 06/05/18 Unknown Rx Benzonatate [Tessalon Perles] 100 mg PO Q8HR PRN #30 capsule 06/05/18 Unknown Rx Ipratropium/Albuterol Sulfate 1 ampul IH Q4HRT PRN #30 ampul.neb 06/05/18 Unk nown Rx [DUONEB *Not for PRN Use*] Oseltamivir [Tamiflu] 75 mg PO BID #2 cap 06/05/18 Unknown Rx methylPREDNISolone [Medrol Dose 1 dose PO DAILY #1 pack 06/05/18 Unknown Rx Fox] ED Physical Exam - General Limitations: No Limitations General appearance: alert, in no apparent distress - Head Head exam: Present: atraumatic, normocephalic, normal inspection - Eye Eye exam: Present: normal appearance, PERRL, EOMI, scleral icterus - ENT ENT exam: Present: normal exam, mucous membranes moist, TM's normal bilaterally - Neck Neck exam: Present: normal inspection, full ROM - Respiratory Respiratory exam: Present: normal lung sounds bilaterally. Absent: respiratory distress - Cardiovascular Cardiovascular Exam: Present: regular rate, normal rhythm. Absent: systolic murmur, diastolic murmur, rubs, gallop - GI/Abdominal GI/Abdominal exam: Present: soft, normal bowel sounds - Rectal Rectal exam: Present: deferred - Extremities Exam Extremities exam: Present: normal inspection, tenderness, other (Decreased range of motion of the left lower extremity. Pulses 2+ capillary refills are brisk. No pitting edema is noted. No no broken skin no increased varus or valgus) - Back Exam Back exam: Present: normal inspection - Neurological Exam Neurological exam: Present: alert, oriented X3 - Psychiatric Psychiatric exam: Present: normal affect, normal mood - Skin Skin exam: Present: warm, dry, intact, normal color. Absent: rash ED Course Vital Signs 09/30/20 09/30/20 22:21 23:30 Temperature 99.0 F Pulse Rate 68 Respiratory 18 17 Rate Blood Pressure 144/83 O2 Sat by Pulse 99 Oximetry Critical care attestation.: If time is entered above; I have spent that time in minutes in the direct care of this critically ill patient, excluding procedure time. ED Disposition Clinical Impression: Pain of left leg, Pain in left lower leg, Osteoarthritis Disposition: DC- TO HOME OR SELFCARE Is pt being admited?: No Does the pt Need Aspirin: No Condition: Stable Instructions: How to Use Cold Therapy, [id number], Osteoarthritis Referrals: PRIMARY CARE, [Primary Care Provider] - 3-5 Days DAVID WORLEY MD [Staff Physician] - 3-5 Days
== END 2020-10-01 02:20 | disposition home or self-care (01) ==
LOC: ED 18:36
DX: M79.662 Pain in left lower leg (principal); M19.91 Primary osteoarthritis, unspecified site; I10 Essential (primary) hypertension; J44.9 Chronic obstructive pulmonary disease, unspecified; F17.200 Nicotine dependence, unspecified, uncomplicated; Z21 Asymptomatic human immunodeficiency virus [HIV] infection status; Z79.899 Other long term (current) drug therapy; Z88.8 Allergy status to other drugs, medicaments and biological substances